=== PATIENT | male | born 1985 | race Caucasian/White ===

== ENCOUNTER 2016-11-11 14:28 | Emergency (ER) | payer OTHER, SELFPAY ==
[2016-11-11 14:50] VITALS: BP 128/84; PULSE 81; RESP 18; TEMP 98; O2SAT 100
--- NOTE | 2016-11-11 16:26 | C.PDOC ---
History Of Present Illness I went to see the pt but could not find him anywhere in the ER. Pt had left without being seen. Time Seen by Provider: 11/11/16 15:45 Past Medical History Reviewed: Historical Data, Nursing Documentation, Vital Signs Vital Signs: Last Vital Signs Temp 98 F 11/11/16 14:48 Pulse 81 11/11/16 14:48 Resp 18 11/11/16 14:48 BP 128/84 11/11/16 14:48 Pulse Ox 100 11/11/16 14:48 Family History: States: Unknown Family Hx - Social History Hx Tobacco Use: No Hx Alcohol Use: No Hx Substance Use: No - Immunization History Hx Tetanus Toxoid Vaccination: No Hx Influenza Vaccination: No Hx Pneumococcal Vaccination: No ED Course And Treatment O2 Sat by Pulse Oximetry: 100 Disposition - Disposition Disposition Time: 16:25 Condition: UNKNOWN - Clinical Impression Clinical Impression: Patient left without being seen
== END 2016-11-11 15:45 | disposition left against medical advice (07) ==
LOC: C.ER 14:28
DX: S30.821A Blister (nonthermal) of abdominal wall, initial encounter (principal); Z02.9 Encounter for administrative examinations, unspecified

== ENCOUNTER 2016-11-16 20:28 | Emergency (ER) | payer SELFPAY ==
[2016-11-16 21:53] VITALS: BP 132/83; PULSE 75; RESP 14; TEMP 98.1; O2SAT 100
--- NOTE | 2016-11-16 22:38 | C.PDOC ---
History Of Present Illness 31 year old patient presents to the ED complaining of a penile rash for the past 2 weeks. Patient reports he has a history of STDs. Patient denies any discharge, scrotal pain, dysuria, or fever. Time Seen by Provider: 11/16/16 22:10 Chief Complaint (Nursing): Male Genitourinary History Per: Patient History/Exam Limitations: no limitations Onset/Duration Of Symptoms: Other (2 weeks) Current Symptoms Are (Timing): Still Present Severity: Mild Pain Scale Rating Of: 3 Quality Of Discomfort: "Pain" Alleviating Factors: None Recent travel outside of the [place]: No Past Medical History Reviewed: Historical Data, Nursing Documentation, Vital Signs Vital Signs: Last Vital Signs Temp 98.1 F 11/16/16 21:51 Pulse 75 11/16/16 21:51 Resp 14 11/16/16 21:51 BP 132/83 11/16/16 21:51 Pulse Ox 100 11/17/16 00:18 Family History: States: Unknown Family Hx - Social History Hx Tobacco Use: No Hx Alcohol Use: No Hx Substance Use: No - Immunization History Hx Tetanus Toxoid Vaccination: No Hx Influenza Vaccination: No Hx Pneumococcal Vaccination: No Review Of Systems Except As Marked, All Systems Reviewed And Found Negative. Constitutional: Negative for: Fever Genitourinary: Positive for: Rash (penile). Negative for: Dysuria, Penile Discharge, Scrotal Pain Physical Exam - Physical Exam Appears: Non-toxic, No Acute Distress Skin: Warm, Dry Gastrointestinal/Abdominal: Normal Exam Male Genital: No Testicular Swelling, No Inguinal Tenderness, No Inguinal Swelling, No Scrotal Swelling, No Circumcised, Other (tender, erythematous, circular lesions in dermatomal distribution on the glans penis and the shaft) Extremity: Normal ROM Neurological/Psych: Oriented x3, Normal Speech, Normal Cognition Gait: Steady ED Course And Treatment O2 Sat by Pulse Oximetry: 100 (RA) Pulse Ox Interpretation: Normal Progress Note: Patient is educated about safe sex. Patient is discharged and instructed to follow up with PMD. Return if symptoms worsen. Disposition Counseled Patient/Family Regarding: Diagnosis, Need For Followup - Disposition Referrals: [facility] [Outside] Disposition: HOME/ ROUTINE Disposition Time: 22:37 Condition: STABLE Additional Instructions: Please follow up with PMD or in clinic Use condom Take meds Return to ER if wors e Prescriptions: Acyclovir [Zovirax] 200 mg PO 5XD #35 cap Instructions: Genital Herpes Simplex (ED) Print Language: ALBANIAN - Clinical Impression Clinical Impression: Herpes genitalis in men - PA / CLERICAL RECEPTIONIST / Resident Statement MD/DO has reviewed & agrees with the documentation as recorded. - Scribe Statement The provider has reviewed the documentation as recorded by the Scribe Nubia Penaloza All medical record entries made by the Scribe were at my direction and personally dictated by me. I have reviewed the chart and agree that the record accurately reflects my personal performance of the history, physical exam, medical decision making, and the department course for this patient. I have also personally directed, reviewed, and agree with the discharge instructions and disposition.
== END 2016-11-16 22:47 | disposition home or self-care (01) ==
LOC: C.ER 20:28
DX: A60.01 Herpesviral infection of penis (principal)